=== PATIENT | male | born 1975 | race Caucasian/White ===

== ENCOUNTER 2020-08-12 19:34 | Emergency (ER) | payer OTHER, SELFPAY ==
[2020-08-12 19:35] VITALS: BP 124/83; PULSE 99; RESP 22; TEMP 36.9; O2SAT 95
--- NOTE | 2020-08-12 19:49 | ED.WOUNDLAC ---
HPI - Wound/Laceration General Chief Complaint: Wound/Laceration Stated Complaint: 45YO male w/ left index finger avulsion while he was cutting an onion with a knife at home. Last tetanus 2017. Here because bleeding won't stop. Related Data Home Medications Medication Instructions Recorded Confirmed dulaglutide [Trulicity] 1.5 mg SUBCUT WEEKLY 08/12/20 08/12/20 empagliflozin [Jardiance] 25 mg PO DAILY 08/12/20 08/12/20 lisinopril 20 mg PO DAILY 08/12/20 08/12/20 omeprazole 20 mg PO DAILY 08/12/20 08/12/20 rosuvastatin 40 mg PO DAILY 08/12/20 08/12/20 Allergies Allergy/AdvReac Type Severity Reaction Status Date / Time fexofenadine Allergy Mild throat Unverified 10/31/16 13:04 swells up pseudoephedrine Allergy Mild throat Unverified 10/31/16 13:04 swells up Review of Systems Review of Systems: All systems reviewed & are unremarkable except as noted in HPI and below Constitutional: Constitutional: Reports no additional constitutional complaints Eyes: Eyes: Reports no additional eye complaints ENT: Reports system reviewed and no additional complaints, except as documented Cardiovascular: Cardiovascular: Reports no additional cardiovascular complaints Respiratory: Respiratory: Reports no additional respiratory complaints Gastrointestinal: Gastrointestinal: Reports no additional gastrointestinal complaints Genitourinary: Genitourinary: Reports no additional male genitourinary complaints Musculoskeletal: Musculoskeletal: Reports no additional musculoskeletal complaints Integumentary/Breasts: Comments: Left Index finger avulsion w/ bleeding Neurologic: Reports system reviewed and no additional complaints, except as documented Psychiatric: Psychiatric: Reports no additional psychiatric complaints Endocrine: Endocrine: Reports no additional endocrine complaints Hematologic/Lymphatic: Hematologic/Lymphatic: Reports no additional hematologic/lymphatic complaints Allergic/Immunologic: Allergic/Immunologic: Reports no additional allergic/immunologic complaints PMFSH Past Medical History Medical History Diabetes mellitus type II, controlled, with no complications GERD (gastroesophageal reflux disease) HLD (hyperlipidemia) HTN (hypertension) Exam Const: General: healthy appearing, no acute distress and alert Nutritional Appearance: well nourished Orientation/consciousness: patient oriented x3 Neck: Neck: normal visual inspection and no lymphadenopathy Chest: Chest palpation & inspection: normal inspection of the chest Resp: Effort & Inspection: normal respiratory effort Auscultation: clear to auscultation bilaterally Cardio: Rate: regular rate Rhythm: regular rhythm GI: Inspection: non-distended GI Palp: Yes Soft to palpation, No Tenderness to palpation present (GI), No Guarding due to palpation present (GI) and No Rigid due to palpation Neuro: General: patient oriented x3 and moves all extremities Extrem: Other: Left Index finger avulsion w/ active bleeding Psych: Mental Status: mental status grossly normal Procedures Other Procedure Procedure 1: Other Procedure: Left Index finger prepped w/ hibicleans and shurcleans. Lidocaine w/ Epi 1%, 0.50ml used locally w/ adequate hemostasis. Area dressed w/ Surgicel, xeroform, then tube guaze MDM - Wound/Laceration Differential Diagnosis Differential diagnosis: Likely avulsion of skin Medical Records Attestation: I reviewed the patient's medical records. Critical Care Time Critical Care Time Critical Care Time: No Discharge Plan Discharge Clinical Impression: Avulsion of skin Patient Disposition: Home, Self-Care Condition: Improved Instructions: Nail Avulsion (ED) Additional Instructions: F/U with PMD on saturday for wound re-examination and dressing change. Prescriptions: New cephalexin [Keflex] 500 mg capsule 500 mg PO Q8H Qty: 21 RF: 0 No A
[2020-08-12 19:54] LABS: Glucose Point of Care 150 (65-105)
== END 2020-08-12 20:13 | disposition home or self-care (01) ==
PROVIDERS: Emergency Provider Family Medicine; PCP Internal Medicine
DX: S61.211A Laceration without foreign body of left index finger without damage to nail, initial encounter (principal); W26.0XXA Contact with knife, initial encounter
CPT/HCPCS: 12001; 99283

== ENCOUNTER 2021-01-27 21:02 | Emergency (ER) | payer OTHER, SELFPAY ==
--- NOTE | ~2021-01-27 | XR_ITS ---
EXAMINATION: [id number] DATE: 01/27/2021 21:36 INDICATION: Right lower limb pain. Fall. TECHNIQUE: A frontal view of the chest and 3 views of the right ribs were obtained. COMPARISON: Chest 2 views 08/03/2016 FINDINGS: A calcified right lung nodule and calcified right hilar lymph nodes are consistent with old granulomatous disease. No pleural effusion or pneumothorax. The heart size is normal. IMPRESSION: 1. No rib fracture. Reviewed, dictated and finalized at location A. IMPRESSION: 1. No rib fracture.
[2021-01-27 21:12] VITALS: BP 134/88; PULSE 89; RESP 18; TEMP 37; O2SAT 97
--- NOTE | 2021-01-27 21:46 | ED.GENADULT ---
HPI - General Adult General Source: patient Mode of arrival: ambulatory Limitations: no limitations History of Present Illness HPI narrative: Patient comes in with rib pain on the right side in his right lower ribs. He describes this pain as moderately severe, sharp, ongoing since he fill and hit his right lower ribs about 4 hours ago. Pain has beenongoing and becoming more severe since that fall four hours ago. He therefore comes in for this pain, worried he broke a rib and punctured a lung. He had some mild shortness of breath just prior to arrival which he believes to be associated with his rib pain. Nothing has made the shortness of breath, or the rib pain any less. Movement has made it more severe, rest has helped decrease it a little. Onset (ago): hour(s) Location: chest Radiation: non-radiation Severity: moderate Severity scale (1-10): 6 Quality: stabbing and sharp Pain Consistency: constant Relieving factors: rest Exacerbating factors: movement Associated symptoms: shortness of breath Related Data Home Medications Medication Instructions Recorded Confirmed dulaglutide [Trulicity] 1.5 mg SUBCUT WEEKLY 08/12/20 01/27/21 empagliflozin [Jardiance] 25 mg PO DAILY 08/12/20 01/27/21 lisinopril 20 mg PO DAILY 08/12/20 01/27/21 omeprazole 20 mg PO DAILY 08/12/20 01/27/21 rosuvastatin 40 mg PO DAILY 08/12/20 01/27/21 Allergies Allergy/AdvReac Type Severity Reaction Status Date / Time fexofenadine Allergy Mild throat Verified 01/27/21 21:55 swells up pseudoephedrine Allergy Mild throat Verified 01/27/21 21:56 swells up Review of Systems Constitutional: Constitutional: Reports no additional constitutional complaints Eyes: Eyes: Reports no additional eye complaints ENT: Reports system reviewed and no additional complaints, except as documented Cardiovascular: Cardiovascular: Reports no additional cardiovascular complaints Respiratory: Respiratory: Reports no additional respiratory complaints Gastrointestinal: Gastrointestinal: Reports no additional gastrointestinal complaints Genitourinary: Genitourinary: Reports no additional male genitourinary complaints Musculoskeletal: Musculoskeletal: Reports no additional musculoskeletal complaints Integumentary/Breasts: Skin/Breast: Reports system reviewed and no additional complaints, except as docu Neurologic: Reports system reviewed and no additional complaints, except as documented Psychiatric: Psychiatric: Reports no additional psychiatric complaints Endocrine: Endocrine: Reports no additional endocrine complaints Hematologic/Lymphatic: Hematologic/Lymphatic: Reports no additional hematologic/lymphatic complaints Allergic/Immunologic: Allergic/Immunologic: Reports no additional allergic/immunologic complaints [facility] Past Medical History Medical History (Updated 01/28/21 @ 01:37 by Gonzalo Rosales MD) Diabetes mellitus type II, controlled, with no complications GERD (gastroesophageal reflux disease) HLD (hyperlipidemia) HTN (hypertension) Knee fracture Surgical History Surgical History (Updated 01/28/21 @ 01:38 by Gonzalo Rosales MD) No significant past surgical history Family History Family History (Updated 01/28/21 @ 01:46 by Gonzalo Rosales MD) Mother No significant family history Social History Social History (Updated 01/28/21 @ :47 by Gonzalo Rosales MD) Smoking status: Former smoker Alcohol intake: current Substance use: never Living arrangements: with family Gender identity (if verbalized by the patient): Male Exam Const: General: cooperative, healthy appearing and well developed Orientation/consciousness: oriented to person and oriented to time Limitations: no limitations HENMT: Head: normal to inspection and normocephalic Ears: hearing grossly normal bilaterally and TM's normal bilaterally General nose exam: Normal external nose present and Normal nares present Face and sinus: normal facial exam Mouth: Ye
[2021-01-27] MEDS: KETOROLAC (*BKC) 60 MG/2 ML VIAL IM (21:56)
[2021-01-27] MEDS: traMADol HCL (*CRX) 50 MG TABLET PO (21:57)
[2021-01-27 22:02] VITALS: BP 132/88; PULSE 72; RESP 18; TEMP 36.6; O2SAT 94
== END 2021-01-27 22:03 | disposition home or self-care (01) ==
PROVIDERS: Emergency Provider Emergency Medicine; PCP Internal Medicine
DX: S20.211A Contusion of right front wall of thorax, initial encounter (principal); W19.XXXA Unspecified fall, initial encounter
CPT/HCPCS: 71101; 96372; 99283; A9270; J1885

== ENCOUNTER 2023-04-19 10:16 | Emergency (ER) | payer BC, SELFPAY ==
--- NOTE | 2023-04-19 10:29 | ED.EAR ---
HPI - Ear Problem General Chief complaint: Ear Stated complaint: Right ear Time Seen by Provider: 04/19/23 10:32 Source: patient, RN notes reviewed and old records reviewed Mode of arrival: ambulatory Limitations: no limitations History of Present Illness HPI Narrative: 48 year old male presents to [facility] [place] [facility] care with continued complaints of right ear. Patient reports that he saw his PCP and was placed on oral antibiotics for 14 days which he completed but pain to his right ear continues. He states also at the time he was seen for his ear he had experienced a tick bite and was placed on Doxycycline for a 14 day duration and had a swollen lymph node by his right ear. Patient told him that his PCP told him that he had a lot of wax in his ears and had been using Debrox ear drops to remove wax.Patient reports that he has noted some clear drainage from his right ear. He states that he has used some OTC ear relief drops also. MD Complaint: ear pain Location: right ear Duration: constant Severity: moderate Discharge from ear: Reports yes - clear Treatment prior to arrival: other (completed 14 days of doxycycline) Related Data Home Medications Medication Instructions Recorded Confirmed dulaglutide 1.5 mg/0.5 mL 1.5 mg subcut WEEKLY 08/12/20 01/27/21 subcutaneous pen injector (Trulicity) empagliflozin 25 mg tablet 25 mg PO DAILY 08/12/20 01/27/21 (Jardiance) lisinopril 20 mg tablet 20 mg PO DAILY 08/12/20 01/27/21 omeprazole 20 mg capsule,delayed 20 mg PO DAILY 08/12/20 01/27/21 release rosuvastatin 40 mg tablet 40 mg PO DAILY 08/12/20 01/27/21 omeprazole 20 mg capsule,delayed mg 04/19/23 release pioglitazone 15 mg tablet mg 04/19/23 semaglutide 7 mg tablet (Rybelsus) mg PO 04/19/23 Allergies Allergy/AdvReac Type Severity Reaction Status Date / Time fexofenadine Allergy Mild throat Verified 01/27/21 21:55 swells up pseudoephedrine Allergy Mild throat Verified 01/27/21 21:56 swells up Review of Systems Review of Systems: CONSTITUTIONAL: Denies malaise, chills, sweats, or fever. EYES: Denies visual changes, redness, or discharge. ENT: Reports no rhinorrhea, congestion, sinus pain,positive for right otalgia no sore throat. CARDIOVASCULAR: Denies chest pain, palpitations, or edema. RESPIRATORY: Reports no cough.? Denies dyspnea. GASTROINTESTINAL: Denies abdominal pain, nausea, vomiting, diarrhea SKIN: Denies rash or itching. MUSCULOSKELETAL: Denies myalgia. NEUROLOGIC: Denies headache. All systems reviewed & are unremarkable except as noted in HPI and below PMFSH Past Medical History Medical History Diabetes mellitus type II, controlled, with no complications GERD (gastroesophageal reflux disease) HLD (hyperlipidemia) HTN (hypertension) Knee fracture Surgical History Surgical History No significant past surgical history Family History Family History Mother No significant family history Social History Social History Smoking status: Former smoker Alcohol intake: current Substance use: never Living arrangements: with family Gender identity (if verbalized by the patient): Male Comments At time of signature, agree with nursing past medical, surgical, social and family history. There is no relevant family history pertinent to the presenting complaint Exam Narrative: GENERAL: Well-appearing, well-nourished, and in no acute distress. HEAD: Normocephalic EYES: PERRLA, conjunctivae clear ENT: Nares clear, turbinates edematous and erythematous, clear discharge. Mucous membranes moist.Right TM red with ear canal excoriated, Left TM pearly foley with dull light reflex bilaterally; Right tragal tenderness. Oropharynx erythematous without lesions.
[2023-04-19 10:30] VITALS: BP 148/96; PULSE 73; RESP 16; TEMP 36.4; O2SAT 98
== END 2023-04-19 10:55 | disposition home or self-care (01) ==
PROVIDERS: Emergency Provider Registered Nurse; PCP Internal Medicine
DX: H66.91 Otitis media, unspecified, right ear (principal); H60.91 Unspecified otitis externa, right ear; Z87.891 Personal history of nicotine dependence; E11.9 Type 2 diabetes mellitus without complications; K21.9 Gastro-esophageal reflux disease without esophagitis; E78.5 Hyperlipidemia, unspecified; I10 Essential (primary) hypertension
CPT/HCPCS: 99213; G0463

== ENCOUNTER 2024-02-26 20:03 | Emergency (ER) | payer BC, SELFPAY ==
[2024-02-26 20:06] VITALS: BP 140/91; PULSE 91; RESP 18; TEMP 36.1; O2SAT 95
--- NOTE | 2024-02-26 20:14 | ED.GENADULT ---
HPI - General Adult General Chief complaint: Skin/Abscess/Foreign Body Stated complaint: bug bite History of Present Illness HPI narrative: This is a 41-year-old male presenting with a bug bite. Patient was at his [place] all day . 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 He also developed to itchy areas on his right pectoral. The wound on his back his mom from itchy too painful. He is concerned that he either has a brown recluse spider that possibly had a tick bite. He did not see a spider or a tick. No other complaints this time. Related Data Home Medications Medication Instructions Recorded Confirmed dulaglutide 1.5 mg/0.5 mL 1.5 mg subcut WEEKLY 08/12/20 01/27/21 subcutaneous pen injector (Trulicity) empagliflozin 25 mg tablet 25 mg PO DAILY 08/12/20 01/27/21 (Jardiance) lisinopril 20 mg tablet 20 mg PO DAILY 08/12/20 01/27/21 omeprazole 20 mg capsule,delayed 20 mg PO DAILY 08/12/20 01/27/21 release rosuvastatin 40 mg tablet 40 mg PO DAILY 08/12/20 01/27/21 omeprazole 20 mg capsule,delayed mg 04/19/23 release pioglitazone 15 mg tablet mg 04/19/23 semaglutide 7 mg tablet (Rybelsus) mg PO 04/19/23 Allergies Allergy/AdvReac Type Severity Reaction Status Date / Time fexofenadine Allergy Mild throat Verified 01/27/21 21:55 swells up pseudoephedrine Allergy Mild throat Verified 01/27/21 21:56 swells up PMFSH Past Medical History Medical History Diabetes mellitus type II, controlled, with no complications GERD (gastroesophageal reflux disease) HLD (hyperlipidemia) HTN (hypertension) Knee fracture Surgical History Surgical History No significant past surgical history Family History Family History Mother No significant family history Social History Social History Smoking status: Former smoker Alcohol intake: current Substance use: never Living arrangements: with family Gender identity (if verbalized by the patient): Male Exam Narrative: APPEARANCE: No apparent distress. Head: atraumatic. EYES: EOMI, NOSE: Atraumatic NECK: Trachea midline RESPIRATORY: No increased rate of breathing CARDIOVASCULAR: RRR, ABDOMINAL: Non-distended MUSCULOSKELETAl: No obvious deformities NEURO: Alert. Moving 4/4 extremities SKIN:: Small erythematous area on the patient's back with excoriation. Two similar areas on his right pectoral. No areas of fluctuance or surrounding cellulitis. No target lesion PSYCHIATRIC: Normal affect Course Vital Signs Vital signs: Vital Signs Temperature 97 F L 02/26/24 20:06 Pulse Rate 91 02/26/24 20:06 Respiratory Rate 18 02/26/24 20:06 Blood Pressure 140/91 H 02/26/24 20:06 Pulse Oximetry 95 02/26/24 20:06 Oxygen Delivery Room Air 02/26/24 20:06 Temperature 97 F L 02/26/24 20:06 Pulse Rate 91 02/26/24 20:06 Respiratory Rate 18 02/26/24 20:06 Blood Pressure 140/91 H 02/26/24 20:06 Pulse Oximetry 95 02/26/24 20:06 Oxygen Delivery Room Air 02/26/24 20:06 Medical Decision Making [facility] Narrative Medical decision making narrative: -Course: 41-year-old male presenting with 3 areas of redness and itchiness of following a stay at his [facility]. Patient was moving brush during that time. Since the wounds have gone from itchy to painful I will treat him with Keflex to cover a bacterial superinfection. He also be given prophylaxis for Lyme disease is wearing a moderate risk area. The patient has primary care follow-up in 2 days and they can reassess his bites at that time. -DDX includes but is not limited to: Insect bite, poison aliza, early cellulitis / abscess, shingles -Interventions: Keflex 500 m
[2024-02-26] MEDS: CEPHALEXIN 500 MG CAPSULE PO (20:31)
[2024-02-26] MEDS: DOXYCYCLINE HYCLATE 100 MG TABLET 200 MG PO (20:31)
== END 2024-02-26 20:46 | disposition home or self-care (01) ==
LOC: CHSED 20:22
PROVIDERS: Emergency Provider Emergency Medicine; PCP Internal Medicine
DX: S20.469A Insect bite (nonvenomous) of unspecified back wall of thorax, initial encounter (principal); E78.5 Hyperlipidemia, unspecified; I10 Essential (primary) hypertension; E11.9 Type 2 diabetes mellitus without complications; Z87.891 Personal history of nicotine dependence; W57.XXXA Bitten or stung by nonvenomous insect and other nonvenomous arthropods, initial encounter
CPT/HCPCS: 99283; A9270

== ENCOUNTER 2025-07-30 08:46 | Emergency (ER) | payer BC, SELFPAY ==
[2025-07-30 08:47] VITALS: BP 139/102; PULSE 75; RESP 16; TEMP 36.7; O2SAT 96
--- NOTE | 2025-07-30 08:52 | ED.WOUNDLAC ---
HPI - Wound/Laceration General Chief Complaint: Wound/Laceration Stated Complaint: laceration Source: patient Mode of arrival: ambulatory Limitations: no limitations History of Present Illness HPI narrative: Patient is a 50-year-old male with a left thumb injury while cutting a bagel prior to arrival. He has superficial laceration to the left thumb. Onset (ago): hour(s) (One) Extremity Location: Left: hand (Thumb) Place: home Patient tetanus UTD: Yes (In past 5 years) Context: accidental Associated symptoms: pain Treatments prior to arrival: bandage Related Data Home Medications ?Medication ?Instructions ?Recorded ?Confirmed ?Last Taken ?Type dulaglutide 1.5 mg/0.5 mL 1.5 mg subcut WEEKLY 08/12/20 02/26/24 Unknown History subcutaneous pen injector (Trulicity) empagliflozin 25 mg tablet 25 mg PO DAILY 08/12/20 02/26/24 Unknown History (Jardiance) lisinopril 20 mg tablet (Zestril) 20 mg PO DAILY 08/12/20 02/26/24 Unknown History omeprazole 20 mg capsule,delayed 20 mg PO DAILY 08/12/20 02/26/24 Unknown History release rosuvastatin 40 mg tablet (Crestor) 40 mg PO DAILY 08/12/20 02/26/24 Unknown History Adult Probiotic 1 pill PO DAILY 02/26/24 02/26/24 Unknown History Tylenol 650 mg PO DAILY 02/26/24 02/26/24 Unknown History multivit,calcium,min-folic acid 1 tablet PO DAILY 02/26/24 02/26/24 Unknown History 240 mcg-D3 25 mcg-lycop 300 mcg tablet (One A Day Men Complete) naproxen sodium 220 mg capsule 660 mg PO DAILY 02/26/24 02/26/24 Unknown History (Aleve) Allergies Allergy/AdvReac Type Severity Reaction Status Date / Time fexofenadine Allergy Mild throat Verified 01/27/21 21:55 swells up pseudoephedrine Allergy Mild throat Verified 01/27/21 21:56 swells up Review of Systems Review of Systems: All systems reviewed & are unremarkable except as noted in HPI and below Constitutional: Constitutional: Reports no additional constitutional complaints Eyes: Eyes: Reports no additional eye complaints ENT: Reports system reviewed and no additional complaints, except as documented Cardiovascular: Cardiovascular: Reports no additional cardiovascular complaints Respiratory: Respiratory: Reports no additional respiratory complaints Gastrointestinal: Gastrointestinal: Reports no additional gastrointestinal complaints Genitourinary: Genitourinary: Reports no additional male genitourinary complaints Musculoskeletal: Musculoskeletal: Reports no additional musculoskeletal complaints Integumentary/Breasts: Skin/Breast: Reports system reviewed and no additional complaints, except as docu Neurologic: Reports system reviewed and no additional complaints, except as documented Psychiatric: Psychiatric: Reports no additional psychiatric complaints Endocrine: Endocrine: Reports no additional endocrine complaints Hematologic/Lymphatic: Hematologic/Lymphatic: Reports no additional hematologic/lymphatic complaints Allergic/Immunologic: Allergic/Immunologic: Reports no additional allergic/immunologic complaints PMFSH Past Medical History Medical History Knee fracture HLD (hyperlipidemia) GERD (gastroesophageal reflux disease) HTN (hypertension) Diabetes mellitus type II, controlled, with no complications Surgical History Surgical History No significant past surgical history Family History Family History Mother No significant family history Social History Social History Alcohol intake: current Substance use: never Living arrangements: with family Gender identity (if verbalized by the patient): Male Exam Const: General: healthy appearing Nutritional Appearance: well nourished Orientation/consciousness: patient oriented x3 HENMT: Head: normal to inspection Ears: external ears normal Face/Nose/Sinus: Normal external nose present Eyes: Conjunctivae: conjunctivae normal Pupils: Equal, round and reactive pupils present EOM: EOMs intact bilaterally Neck: Neck: normal visual inspection Chest: Chest palpation & inspection: normal inspection of the chest Resp: Effort & Inspection: normal respiratory effort and not labored Auscultation: clear to auscultation bilaterally and no crackles Cardio: Rate: regular rate Rhythm: regular rhythm Heart sounds: no murmurs GI: Inspection: non-distended GI Palp: Yes Soft to palpation and No Tenderness to palpation present (GI) Auscultation: normal bowel sounds Back/Spine/Pelvis: Back: no CVA tenderness Skin: General skin exam: normal color Rashes: no rashes Wounds: wound noted Other: Left thumb distal tip has a superficial 1.5 cm laceration that is linear; no infection and minimal bleeding after cleaning Neuro: General: patient oriented x3, moves all extremities and no meningeal signs Extrem: General: normal to inspection, no clubbing, cyanosis or edema and no pedal edema Other: See skin exam Psych: Mental Status: mental status grossly normal Affect: normal affect Attitude: cooperative Course Vital Signs Vital signs: Vital Signs Temperature 36.7 C 07/30/25 08:47 Pulse Rate 75 07/30/25 08:47 Respiratory Rate 16 07/30/25 08:47 Blood Pressure 139/102 H 07/30/25 08:47 Pulse Oximetry 96 07/30/25 08:47 Oxygen Delivery Room Air 07/30/25 08:47 Temperature 36.7 C 07/30/25 08:47 Pulse Rate 75 07/30/25 08:47 Respiratory Rate 16 07/30/25 08:47 Blood Pressure 139/102 H 07/30/25 08:47 Pulse Oximetry 96 07/30/25 08:47 Oxygen Delivery Room Air 07/30/25 08:47 Procedures Other Procedure Procedure 1: Other Procedure: Left thumb distal tip laceration: 1.5 cm linear laceration with adhesive glue placed on top for closure, area was cleaned prior with chlorhexidine spray, bandage, patient tolerated procedure well and no complications MDM - Wound/Laceration MDM Narrative Medical decision making narrative: Patient is a 50-year-old male with a left thumb laceration after cutting a bagel prior to arrival. Skin adhesive. Tetanus up-to-date. No antibiotics needed. Discharge Plan Discharge Clinical Impression: Finger laceration Qualifiers: Encounter type: initial encounter Finger: thumb Damage to nail status: without damage Foreign body presence: without foreign body Laterality: left Qualified Code(s): S61.012A - Laceration without foreign body of left thumb without damage to nail, initial encounter Patient Disposition: Home Condition: Stable Instructions: Laceration (ED), Skin Adhesive Care (ED) Patient Language: Polish Prescriptions: No Action lisinopril [Zestril] 20 mg tablet 20 mg PO DAILY omeprazole 20 mg capsule,delayed release(DR/EC) 20 mg PO DAILY rosuvastatin [Crestor] 40 mg tablet 40 mg PO DAILY Jardiance 25 mg tablet 25 mg PO DAILY Trulicity 1.5 mg/0.5 mL pen injector 1.5 mg SUBCUT WEEKLY cephalexin 500 mg capsule 500 mg PO Q12H Qty: 10 0RF Adult Probiotic 1 pill PO DAILY naproxen sodium [Aleve] 220 mg Capsule 660 mg PO DAILY One A Day Men Complete 240-25-300 mcg Tablet 1 tablet PO DAILY Tylenol 650 mg PO DAILY Follow-up/Referrals: Juvenal,José Pena MD [Primary Care Provider, Unknown] Time of Disposition: 09:11
--- OUTSIDE RECORDS SUMMARY | 2025-07-30 09:08 | XMS_ITS | Clinical Summary ---
Author Organization [facility] Address [address] [place] [id number] Care Team Providers Care Supervisor [employer] Name Role Phone Unavailable Primary Care Provider Unavailabl e Social History Tobacco Use Types Packs/Day Years Used Date Smoking Tobacco: Never Assessed Sex and Gender Information Value Date Recorded Sex Assigned at Not on file Legal Sex Male 7:32 PM CDT Gender Identity Not on file Sexual Orientation Not on file Plan of Treatment Health Maintenance Due Date Last Done Comments Colorectal Cancer Screening Colonoscopy (10 Years) 1976 Annual Physical 02/17/1979 Hepatitis C 02/17/1994 DTaP, Tdap and Td Vaccines ( 1 - Tdap) 02/17/1995 Hepatitis B Vaccines (1 of 3 - 19+ 3-dose series) 02/17/1995 COVID-19 Vaccine (2024-2 6 season) 2025 Influenza Adult (#1) 2025 Hepatitis A Vaccines Aged Out No long er eligible based on patient's age to complete this topic Meningococcal B Vaccine Aged Out No l onger eligible based on patient's age to complete this topic Meningococcal Vaccine Aged Out No kaushik lulu eligible based on patient's age to complete this topic Pneumococcal Vaccine: Pediat rics (0 to 5 Years) and At-Risk Patients (6 to 49 Years) Aged Out No longer eligible b ased on patient's age to complete this topic RSV Immunizations Under 20 Months Aged Out No longer eligible based on patient's age to complete this topic
--- OUTSIDE RECORDS SUMMARY | 2025-07-30 09:55 | XMS_ITS | Encounter Summary ---
Author Organization [facility] Address [address] [place] [address] Phone Care Team Providers Care Ramp And Cargo Supervisor Name Role Phone José Sanford MD Primary Care Provider [phone] Encounter Details Date Type Department Care Team (Late st Contact Info) Description 11/26/2017 Orders Only [facility] ProviderAdri MD [address] [place], [place] [id number] Social History Tobacco Use Types Packs/Day Years Used Date Smoking Tobacco: Never Smokeless Tobacco: Never Alcohol Use Standard Drinks/Week Comments No 0 (1 standard drink = 0.6 oz pur e alcohol) Sex and Gender Information Value Date Recorded Sex Assigned at Not on file Legal Sex Male 11:54 PM WOOD PATTERN MAKER Gender Identity Not on file Sexual Orientation Not on file documented as of this encounter Functional Status * BP Location Answer Date of Assessment Author Right arm 11/26/2017 11:34 AM WOOD PATTERN MAKER [place], [place] * BP Location Answer Date of Assessment Author Right arm 11/26/2017 11:34 AM WOOD PATTERN MAKER [place]iscilla [place], [place] documented as of this encounter Plan of Treatment Not on file documented as of this encounter Procedures Procedure Name Priority Date/Time Associated Diagnosis Comments DISCHARGE LABORATORY CUMULATIVE REPORT 11/26/2017 12:00 AM WOOD PATTERN MAKER documented in this encounter Results * DISCHARGE LABORATORY CUMULATIVE REPORT (11/26/2017 12:00 AM WOOD PATTERN MAKER) Narrative 11/26/2017 12:00 AM WOOD PATTERN MAKER Ordered by an unspecified provider. us Historical Provider LAB BLOOD ORDERABLES Giselle l Result documented in this encounter Visit Diagnoses Not on filedocumented in this encounter Care Teams Ramp And Cargo Supervisor Relationship Specialty Start Date End Date José Sanford MD PCP - General Internal Medicine 02/24/20 documented as of this encounter
--- OUTSIDE RECORDS SUMMARY | 2025-07-30 09:55 | XMS_ITS | Clinical Summary ---
Author Organization [facility] Address [address] [place] [id number] Care Team Providers Care Hat Block Bench Hand Name Role Phone José Sanford MD Primary Care Provider [phone] Allergies Active Allergy Reactions Criticality Noted Date Comments Fexofenadine Other (See comments) High Reaction: sore throat, unable to eat, drink, , Medications lancets (ONETOUCH DELICA LANCETS) 33 gauge misc test by by finger stick route 2 times every day 100 each 3 5 Active pen needle, diabetic (PEN NEEDLE) 32 gauge x /32 needle 6 needles /day. use with insulin pens 200 11 6 Active clobetasol (OLUX) 0.05 % topical foam Apply topically daily. 100 g 1 7 Active blood glucose diagnostic (ONETOUCH VERIO) strip Onetouch verio strip 2 times daily 150 each 3 8 Active rosuvastatin (CRESTOR) 40 mg tablet Take 1 tablet (40 mg total) by mouth daily 90 tablet 3 9 Active JARDIANCE 25 mg tablet TAKE 1 TABLET BY MOUTH EVERY DAY 90 tablet 1 9 Active fluticasone propionate (FLONASE) 50 mcg/actuation nasal spray SPRAY 2 SPRAYS INTO EACH NOSTRIL EVERY DAY 16 mL 1 0 Active Additional Information Patient not taking.Reported on 02/25/2025 lisinopriL (PRINIVIL,ZESTR IL) 20 mg tablet Take 1 tablet (20 mg total) by mouth daily 90 tablet 0 Active omeprazole (PriLOSEC) 20 mg capsule TAKE 1 CAPSULE BY MOUTH EVERY DAY 90 capsule 3 0 Active fluticasone propionate (FLONASE) 50 mcg/actuation nasal spray Administer 1 spray into each nostril daily 16 mL 11 0 Active Additional Information Patient not taking.Reported on 02/25/2025 HYDROcodone-manuela taminophen (NORCO) 5-325 mg per tabletIndicatio ns:Pain Take 1 tablet by mouth every 6 (six) hours as needed for pain 6 tablet 2 Active Additional Information Patient not taking.Reported on 02/25/2025 Mounjaro 5 mg/0.5 mL pen injector injection 5 Active triamcinolone (KENALOG) 0.1 % ointmentIndicat ions:Dermatitis Apply topically 2 (two) times a day for 10 days 30 g 5 Active Active Problems Problem Noted Date Diagnosed Date Family history of colon cancer 07/30/2023 Encounter for screening colonoscopy 07/30/2023 Chronic pain of right hip 08/04/2018 Assessment & Plan (08/04/2018 9:36 AM FITTER MECHANIC): Right hip pain for 3 months. No no history of trauma. Likely osteoarthritis Will obtain hip x-ray. Sorethroat 12/13/2017 Assessment & Plan (12/13/2017 10:43 AM CDT): Clinically strep throat: Treat with Augmentin, warm salt water gargles, NSAIDs p.r.n.. Subacute frontal sinusitis 09/26/2017 Assessment & Plan (09/26/2017 2:30 PM FITTER MECHANIC): We discussed today. It sounds like the patient has an upper respiratory infection which is worsening. I recomended increased oral fluid intake. I will institute antibiotics and monitor as clinical course dictates. Begin augmentin BMI 33.0-33.9,adult 08/29/2017 Assessment & Plan (08/04/2018 9:35 AM FITTER MECHANIC): BMI Follow-up includes: nutrition counseling and exercise counseling. Assessment & Plan (03/31/2018 10:26 AM CDT): BMI Follow-up includes: nutrition counseling and exercise counseling. Assessment & Plan (12/13/2017 10:18 AM CDT): BMI Follow-up includes: nutrition counseling, exercise counseling and education provided. Assessment & Plan (11/27/2017 8:23 PM FITTER MECHANIC): BMI Follow-up includes: nutrition counseling and exercise counseling. Assessment & Plan (09/26/2017 1:55 PM FITTER MECHANIC): BMI Follow-up includes: nutrition counseling, exercise counseling and education provided. Assessment & Plan (08/29/2017 3:50 PM FITTER MECHANIC): BMI Follow-up includes: nutrition counseling, exercise counseling and education provided. Hypertension 02/07/2015 Overview (12/27/2016): High blood pressure Assessment & Plan (08/04/2018 9:37 AM FITTER MECHANIC): Stable on lisinopril Dietary sodium restriction. Weight loss. Regular aerobic exercise. Assessment & Plan (03/31/2018 10:28 AM CDT): Off lisinopril for 2 weeks. Reports headaches, no blurring of vision. BP is 125/90 today. Will restart lisinopril 20 mg daily. Advised to decrease 10 mg daily if blood pressure is below 100/60 Assessment & Plan (11/27/2017 8:24 PM FITTER MECHANIC): Blood pressure improved with recent weight loss. Reports episodes of dizziness. Will decrease lisinopril 10 mg daily. Advised to monitor blood pressure and call if above 140/80. Assessment & Plan (08/29/2017 3:54 PM FITTER MECHANIC): Well controlled on lisinopril Diabetes mellitus 02/07/2015 Overview (12/27/2016): Diabetes Assessment & Plan (08/04/2018 9:37 AM FITTER MECHANIC): Well controlled, hemoglobin A1c 6.3%. Will make no change in his current regimen. Continue Jardiance 25 mg daily. Continue Trulicity 1.5 mg weekly. Drink at least 60 oz of fluids daily Dietary recommendations for ADA diet. Regular aerobic exercise. Discussed ways to avoid symptomatic hypoglycemia. Discussed sick day management. Discussed foot care. Reminded to get yearly retinal exam. Diabetes will be reassessed in 3 months. Seasonal allergic rhinitis 02/07/2015 Overview (12/27/2016): Seasonal nasal allergies Impotence of organic origin 11/05/2014 Overview (12/27/2016): ED (erectile dysfunction) Hyperlipidemia 02/06/2014 Overview (12/28/2016): HYPERLIPIDEMIA NEC/NOS Assessment & Plan (08/04/2018 9:37 AM FITTER MECHANIC): Controlled on Vytorin Assessment & Plan (03/31/2018 10:27 AM CDT): Well controlled on Vytorin.. Assessment & Plan (11/27/2017 8:25 PM FITTER MECHANIC): Stable on Vytorin . Assessment & Plan (08/29/2017 3:54 PM FITTER MECHANIC): Stable on Vytorin . Gastroesophageal reflux disease 02/06/2014 Overview (12/28/2016): ESOPHAGEAL REFLUX Type 2 diabetes mellitus 02/06/2014 Overview (12/28/2016): DMII WO CMP NT ST UNCNTR Assessment & Plan (03/31/2018 10:27 AM CDT): Hemoglobin A1c is 6.0%. Continue Trulicity 1.5 mg weekly and Jardiance 25 mg daily. Advised to keep well hydrated while on Jardiance. Consistent carb diet exercise and weight loss discussed. Annual dilated eye exam. Follow-up in 4 months. Assessment & Plan (11/27/2017 8:29 PM FITTER MECHANIC): Well controlled, hemoglobin A1c was 6.6% in August 2017. Will make no change in his current regimen. Continue Jardiance 25 mg daily and Trulicity 1.5 mg weekly. Consistent carb diet exercise and weight loss. Annual dilated eye exam. Advised to keep hydrated. Potential side effects of Jardiance and Trulicity discussed. RTC in 3 months. Assessment & Plan (09/26/2017 2:30 PM FITTER MECHANIC): Diabetic control has been good with review of patient's last a1c, I have reviewed and addressed all of the other diabetic benchmarks including the diabetic eye exam, foot exam, renal protection, reaching LDL goal of <100. Will make adjustments as needed to current regimen. He is doing much better with an A1c of 6.6 follows with his usual lead slot technician Assessment & Plan (08/29/2017 3:54 PM FITTER MECHANIC): 42 years old male seen in follow-up for type 2 diabetes mellitus. Hemoglobin A1c was 7.4% in February 2017. Improved glycemic control since starting Trulicity. He stopped Lantus 4 months ago. Blood sugars are mostly in the 90s-low 100s. Will continue Trulicity 1.5 mg daily and Jardiance 25 mg daily. Discussed diet and exercise.: Limit carbs to 45-60 g per meal and 15 g per snack. Increase activity as tolerated to 30 minutes daily, 5 times per week Annual dilated eye exam. Labs today. Follow-up in 3 months Immunizations Immunization Administration Dates Next Due Influenza, Live, Intranasal, Quadrivalent 2013 Influenza, Quadrivalent, Spl it, Preservative Free, Intramuscular 08/11/2015 Influenza, Split 10/03/2012 Influenza, Trivalent, IM (MDV) 07/28/2013,2012 Influenza, Unspecified 08/29/2017,07/03/2016 Surgical History Surgery Date Site/Laterality Comments KNEE SURGERY right knee surgery KNEE SURGERY 1992 R knee surgery KNEE ARTHROPLASTY Knee replacement COLONOSCOPY 09/23/2012 - 10/23/2012 COLONOSCOPY 11/21/2023 Medical History Medical History Date Comments Asthma Asthma Type 2 diabetes mellitus Diabete s type 2 Calculus of kidney Nephrolithias is Hyperlipidemia Hypertension Family History Medical History Relation Name Comments Colon cancer Father Cancer, colon; Diabetes Father Diabetes mellit us; /Diabetes mellitus; Hypertension Father Hypertension; / Hypertension; Other Father Alive and well; Cirrhosis Mother Cirrhosis; Caus e of : Cirrhosis Hepatitis Mother Hepatitis C; /H epatitis C; Kidney disease Mother Renal disease ; Lung cancer Mother Cancer, lung; / Cancer, lung; Rectal cancer Paternal Grandmother rectal cancer; Cause of : rectal cancer Relation Name Status Comments Father Alive Mother Paternal Grandmother (Age 28) Social History Tobacco Use Types Packs/Day Years Used Date Smoking Tobacco: Never Smokeless Tobacco: Never Alcohol Use Standard Drinks/Week Comments No 0 (1 standard drink = 0.6 oz pur e alcohol) PHQ-2 Answer Date Recorded PHQ-2 Score 0 05/16/2019 Personal Safety Answer Date Recorded Have you ever been in or are you currently in a harmful physical or emotional relationship or is someone making you feel afraid or unsafe? Denies 11/21/2023 Sex and Gender Information Value Date Recorded Sex Assigned at Not on file Legal Sex Male 11:54 PM FITTER MECHANIC Gender Identity Not on file Sexual Orientation Not on file Last Filed Vital Signs Vital Sign Reading Time Taken Comments Blood Pressure 122/70 02/25/2025 8:26 AM CDT Pulse 80 02/25/2025 8:26 AM CDT Temperature 36.6 C (97.8 F) 02/25/2025 8:26 AM CDT Respiratory Rate 20 02/25/2025 8:26 AM CDT Oxygen Saturation 95% 02/25/2025 8:26 AM CDT Inhaled Oxygen Concentration - - Weight 93.9 kg (207 lb) 02/25/2025 8:26 AM CDT Height 172.7 cm (5' 8) 11/21/2023 7:42 AM FITTER MECHANIC Body Mass Index 31.47 11/21/2023 7:42 AM FITTER MECHANIC Plan of Treatment Health Maintenance Due Date Last Done Comments Albumin Creatinine Ratio, Urine 1975 Hepatitis C Screening 1975 Dilated Eye Exam 1975 Hepatitis B Screening 02/17/1994 Regular Well Visit/Exam 18-64 02/17/1994 Pneumococcal vaccine <65 (1 of 2 - PCV) 02/17/1995 DTaP/Tdap/Td Vaccine (5 - Tdap) 09/24/2017 09/23/2017, 08/13/1991, 10/21/1981, Additional history exists eGFR 11/26/2018 11/26/2017, 03/2017, 02/22/2017 Hemoglobin A1C 04/08/2019 10/09/2018, 07/24, 03/31/2018, Additional history exists Depression Screening 11/06/2019 11/06/2018, 08/04/2018, 03/31/2018, Additional history exists Foot Exam 11/06/2019 11/06/2018, 07/24, 03/31/2018, Additional history exists Lipid Panel 04/03/2024 04/03/2023, 09/23, 08/29/2017, Additional history exists Influenza Vaccine (#1) 2025 , 06/23/2018, 08/29/2017, Additional history exists Colon Cancer Screening-Colonoscopy 11/20/20332023, 10/20/2012 Procedures Procedure Name Priority Date/Time Associated Diagnosis Comments COLONOSCOPY 11/21/2023 7:23 AM FITTER MECHANIC HEMOGLOBIN A1C Routine 10/09/2018 LIPID PANEL Routine 10/09/2018 EGFR Routine 11/26/2017 12:16 PM FITTER MECHANIC Type 2 diabetes mellitus without complication, without long-term current use of insulin (HCC) DIABETES FOOT EXAM Routine 08/29/2017 from Last 3 Months or Most Recently Relevant to Health Maintenance Results * Colonoscopy (11/21/2023 7:23 AM FITTER MECHANIC) Anatomical Region Laterality Modality Other Narrative Procedure Note Omar Mcmahan MD - 11/21/2023 7:23 AM [facility] Center Patient Name: Brayan Lozada Procedure Date: 11/21/2023 7:23 AM Date of : 1975 Admit Type: Outpatient Age: 48 Gender: Male Attending MD: Omar Mcmahan M.D. Room: [facility]COPY RO[facility] 3 Note Status: Finalized Patient Profile: This is a 48 year old male hx of HTN, HLD, DM, GERD here for colon cancer screening. Father with colon cancer in his 60s. Paternal grandmother with rectal cancer. Last colonoscopy from 2012 for rectalbleeding showed hemorrhoids. No longer having rectalbleeding. Procedure: Colonoscopy Indications: Screening patient at increased risk: Family historyof 1st-degree relative with colorectal cancer at age60 years (or older), Last colonoscopy: September 2012 Referring MD: José Sanford M.D. Providers: Omar Mcmahan M.D. Impression: - Preparation of the colon was fair with extensive spasms in the left colon. - One 6 mm polyp in the transverse colon, removedwith a cold snare. Resected and retrieved. - One 5 mm polyp in the descending colon, removedwith a cold snare. Resected and retrieved. - Diverticulosis in the descending colon and in the cecum. - External and internal hemorrhoids. Recommendation: - Patient has a contact number available for emergencies. The signs and symptoms of potential delayed complications were discussed with thepatient. Return to normal activities tomorrow. Written discharge instructions were provided to thepatient. - Discharge patient to home (with escort). - Resume previous diet. - Continue present medications. - Await pathology results. - Repeat colonoscopy in 3 years for surveillancebased on pathology results. - Return to primary care physician as previously scheduled. Medicines: Monitored Anesthesia Care Complications: No immediate complications. Estimated Blood Loss: Estimated blood loss was minimal. Procedure: Pre-Anesthesia Assessment: - Prior to the procedure, a History and Physicalwas performed, and patient medications and allergieswere reviewed. The patient is competent. The risks and benefits of the procedure and the sedation optionsand risks were discussed with the patient. Allquestions were answered and informed consent was obtained. Patient identification and proposed procedure were verified by the physician, the anesthesiologist and the guitar repair technician in the endoscopy suite. MentalStatus Examination: normal. Prophylactic Antibiotics: The patient does not require prophylactic antibiotics. Prior Anticoagulants: The patient has taken no anticoagulant or antiplatelet agents. Afterreviewing the risks and benefits, the patient was deemed in satisfactory condition to undergo the procedure.The anesthesia plan was to use monitored anesthesiacare (MAC). Immediately prior to administration of medications, the patient was re-assessed foradequacy to receive sedatives. The heart rate, respiratory rate, oxygen saturations, blood pressure, adequacyof pulmonary ventilation, and response to care were monitored throughout the procedure. The physical status of the patient was re-assessed after the procedure. The benefits, risks and alternatives of theprocedure and sedation were discussed and informed consentwas obtained. All questions were answered. Please referto the signed informed consent document in the medical record. The bowel preparation used was Miralax and bisacodyl tablets via split dose instruction. The scope was passed under direct vision. TheColonoscope [id number] was introduced through the anus and advanced to the the cecum, identified by appendiceal orifice and ileocecal valve. The colonoscopy was performed without difficulty. The patient tolerated the procedure well. The qualityof the bowel preparation was fair. Bowel prep was administered using a split dose. Findings: The perianal and digital rectal examinations were normal. A 6 mm polyp was found in the transverse colon. The polyp wassessile. The polyp was removed with a cold snare. Resection and retrieval were complete. A 5 mm polyp was found in the descending colon. The polyp wassessile. The polyp was removed with a cold snare. Resection and retrieval were complete. A few small and large-mouthed diverticula were found in thedescending colon and cecum. External and internal hemorrhoids were found during retroflexion and during endoscopy. Omar Mcmahan M.D. 11/21/2023 9:37:03 AM Number of Addenda: 0 Note Initiated On: 11/21/2023 7:23 AM Procedure Code(s): --- Professional --- 58896, Colonoscopy, flexible; with removal of tumor(s), polyp(s), or other lesion(s) by snare technique --- Technical --- 18451, Colonoscopy, flexible; with removal of tumor(s), polyp(s), or other lesion(s) by snare technique Diagnosis Code(s): --- Professional --- Z80.0, Family history of malignant neoplasm of digestive organs K64.8, Other hemorrhoids D12.3, Benign neoplasm of transverse colon (hepatic flexure orsplenic flexure) D12.4, Benign neoplasm of descending colon K57.30, Diverticulosis of large intestine without perforation orabscess without bleeding --- Technical --- Z80.0, Family history of malignant neoplasm of digestive organs K64.8, Other hemorrhoids D12.3, Benign neoplasm of transverse colon (hepatic flexure orsplenic flexure) D12.4, Benign neoplasm of descending colon K57.30, Diverticulosis of large intestine without perforation orabscess without bleeding CPT copyright 2020 [employer]. All rights reserved. The codes documented in this report are preliminary and upon senior microsoft consultant reviewmay be revised to meet current compliance requirements. Recognized by the [employer] for promoting quality in endoscopy Omar Mcmahan MD ENDOSCOPY PROCEDURES Final Resul t * LIPID PANEL (10/09/2018) Lipid Panel Abnormal Adri Nath MD HEALTH MAINTENANCE Final Result * HEMOGLOBIN A1C (10/09/2018) SCRIBED Hemoglobin A1c 6.7% Historical Provider HEALTH MAINTENANCE Final Result * eGFR (11/26/2017 12:16 PM FITTER MECHANIC) eGFR 109 mL/min/1.7 3 m2 [facility] Comment: Interpretive Data Reference Interval Normal >/= 90 mL/min/1.73m2 Mildly decreased* 60 - 89 mL/min/1.73m2 Mildly to moderately decreased 45 - 59 mL/min/1.73m2 Moderately to severely decreased 30 - 44 mL/min/1.73m2 Severely decreased 15 - 29 mL/min/1.73m2 Kidney Failure < 15 mL/min/1.73m2 *Relative to young adult level If -Thai multiply value by 1.16. Estimated glomerular filtration rate is determined by the CKD-EPI equation recommended by the National Kidney Foundation (KDIGO 2012 Clinical Practice Guideline for the Evaluation and Management of Chronic Kidney Disease. Kidney Intnl Suppl Sep 2012;3:1). The CKD-EPI equation should not be used for patients with unstable renal function and has not been validated in children and those over 70. Current interpretive data was last reviewed 2016. Blood specimen (specimen) 11/26/2017 12:16 PM FITTER MECHANIC 11/26/2017 4:48 PM FITTER MECHANIC Narrative [facility] - 11/26/2017 5:18 PM FITTER MECHANIC Andres Casey MD LAB BLOOD ORDERABLES F inal Result [facility] [address] Department [place] [address] * DIABETES FOOT EXAM (08/29/2017) Diabetic Foot Exam Normal Historical Provider HEALTH MAINTENANCE Final Result from Last 3 Months or Most Recently Relevant to Health Maintenance Insurance [facility] [place] Advance Directives For more information, please contact: [phone] * Full Code (Latest Code Status on File) Date Activated Date Inactivated Comments 11/21/2023 7:38 AM 11/21/2023 2:14 PM * Full Code Date Activated Date Inactivated Comments 11/21/2023 7:38 AM 11/21/2023 7:38 AM Care Teams Hat Block Bench Hand Relationship Specialty Start Date End Date José Sanford MD PCP - General Internal Medicine 02/24/20
--- OUTSIDE RECORDS SUMMARY | 2025-07-30 09:55 | XMS_ITS | Clinical Summary ---
Author Organization [facility] Address [address] [place] [id number] Care Team Providers Care Business Analyst Consultant Name Role Phone Unavailable Primary Care Provider [...]
== END 2025-07-30 09:15 | disposition home or self-care (01) ==
LOC: CHSED 09:16
PROVIDERS: Emergency Provider Emergency Medicine; PCP Internal Medicine
DX: S61.012A Laceration without foreign body of left thumb without damage to nail, initial encounter (principal); I10 Essential (primary) hypertension; E11.9 Type 2 diabetes mellitus without complications; E78.5 Hyperlipidemia, unspecified; W26.0XXA Contact with knife, initial encounter
CPT/HCPCS: 12001; 99282